=== PATIENT | female | born 1970 | race Caucasian/White ===

== ENCOUNTER 2024-12-27 21:00 | Day surgery (SDC) | payer OTHER, SELFPAY ==
[2024-12-27 15:53] VITALS: BP 138/94
--- NOTE | 2024-12-27 17:10 | ED.GENMED ---
History of Present Illness
General
Chief Complaint: Foreign Body Ingestion
Time Seen by Provider: 12/27/24 16:55
History of Present Illness
History of Present Illness:
54-year-old female presents to the emergency department for evaluation of a sensation of a foreign body in the esophagus. She states she swallowed half a clove of garlic but since that time has been coughing and gagging and unable to swallow her
own secretions. No history of esophageal strictures or obstructions.
Past History
Past History
ED Past Medical History: Other (HIV positive undetectable for past 20 years)
ED Past Surgical History: None
Social History
Tobacco: Non-smoker
Alcohol: None
Personal:
Living: with family
Employment: Employed (Property management)
Review of Systems
Review of Systems
Allergies reviewed?: Yes
All Other Systems: ROS reviewed and negative except as documented in HPI and ROS
Phy Exam
Physical Exam
Physical Exam:
GEN: Well appearing, NAD, WDWN
HEENT: Oral mucosa moist, no scleral icterus, no oropharyngeal obstructions
Cardiac: Regular rate
Lung: No respiratory distress, no tachypnea
MSK: No gross deformity or injuries
Skin: Good color, no pallor or jaundice, no rashes
Neuro: AO x3, moves all extremities freely
Psych: Calm, cooperative
Course
Orders/Labs/Results
Orders:
Orders
12/27/24 17:07
Glucagon [GlucaGen] 1 mg IV NOW STA
12/27/24 17:20
Glucagon [GlucaGen] 1 mg IV NOW ONE
12/27/24 19:16
Propofol [Diprivan] 20 ml .ROUTE .STK-MED
12/27/24 19:18
Lidocaine HCl/Pf [Xylocaine-Mpf 1% Vial] 50 mg .ROUTE .STK-MED ONE
Rocuronium [place] [Rocuronium] 50 mg .ROUTE .STK-MED ONE
Sugammadex Sodium [Bridion] 200 mg .ROUTE .STK-MED ONE
12/27/24 19:19
Fentanyl Citrate/Pf [Sublimaze] 100 mcg .ROUTE .STK-MED ONE
Midazolam HCl [Versed] 2 mg .ROUTE .STK-MED ONE
Ondansetron Injectable [Zofran] 4 mg .ROUTE .STK-MED ONE
Vital Signs
Initial and Last Documented VS:
Initial Vital Signs
Temp Pulse Resp BP Pulse Ox
97 F 92 16 138/94 100
12/27/24 15:53 12/27/24 15:53 12/27/24 15:53 12/27/24 15:53 12/27/24 15:53
Last Documented Vital Signs
Temp Pulse Resp BP Pulse Ox
97.4 F 78 12 121/59 99
12/27/24 20:15 12/27/24 21:05 12/27/24 21:05 12/27/24 21:05 12/27/24 21:05
MDM/Problems Addressed
MDM/Problems Addressed:
Glucagon was unsuccessful in resolving the esophageal food impaction thus the patient will be taken to the GI lab by Neurology for intervention
*Critical Care Note
Total Time (30-74mins, 75-104mins- exclusive of procedures): Not Applicable
ED Attending Note
-
Portions of this chart may have been created with voice recognition software.� Occasional wrong word or��sound alike� substitutions may have occurred due to the inherent limitations of voice recognition software.
Discharge Plan
Departure
Patient Disposition: GI LAB
Date of Disposition: 12/27/24
Time of Disposition: 18:08
Presentation/result/management discussed w/ accepting MD/DO: Gastroenterology
Discharge Problem:
Esophageal obstruction due to food impaction
Prescriptions:
No Action
melatonin 5 MG tablet
5 mg PO HS Qty: 14 0RF
Rx Instructions:
Take 5 mg daily at bedtime for 14 days
valsartan 40 mg Tablet
40 mg PO DAILY
Referrals:
UNKNOWN - PT DOES,NOT KNOW [Family Provider] -
Interventions
Interventions:
*Risk Screen - Suicide Last Done: 12/27/24 15:55
*General Assessment Last Done: 12/27/24 19:15
*Neglect/Abuse Screening Last Done: 12/27/24 15:55
*ED- Fall Risk Assessment Last Done: 12/27/24 18:42
*ED COVID-19 Vaccine History Last Done: 12/27/24 18:42
*Nursing Disposition Last Done: 12/27/24 19:40
GK-Zkyatx-Xlhnbmcoxh Assessment Last Done: 12/27/24 17:51
ED- Pulmonary Assessment Last Done: 12/27/24 17:51
ED-EENT Assessment Last Done: 12/27/24 17:52
Discharge Date and Time
Discharge Date/Time: 12/27/24 19:42
Print Language: KYRGYZ
[2024-12-27] MEDS: GlucaGen 1 MG IV ×2 (17:14→17:37)
--- NOTE | 2024-12-27 18:19 | CON.GI ---
Consultation
-
Date/Time Consultation Requested: 12/27/241744
Date/Time Consultation Performed: 12/27/24, 1819
Requesting Provider: Dr. Ata Larios
Performing Provider: Dr. Kamar Shaffer
Reason for Consultation: Food bolus
Medical History
Chief Complaint / HPI
Chief Complaint: Food bolus
History of Present Illness:
Ms. Shaw is a 54-year-old female with a past medical history of HIV presented to the ED with a sensation of a foreign body in the esophagus.
She reports URI symptoms and decided to take half a clove garlic to help with relief. Unfortunately, she felt this gets lodged in her upper esophagus and has been unable to tolerate her secretions since that time which was approximately 3 hours
ago. She has been coughing, gagging, along with inability to tolerate any liquids. She denies any prior history of similar symptoms in the past. There is no personal history of prior EoE or known esophageal strictures. She has had an EGD in the
past several years ago (no records of this) and reportedly normal. She is not on any other medications or blood thinners.
Currently, she is still having difficulty managing secretions despite two doses of glucagon. Her vitals are otherwise normal.
Past Medical History
Past Medical History: Other (HIV)
Past Surgical History: None
Social History
Tobacco: Non-Smoker
Alcohol: None
Drug: None
Personal:
Family History
Family History: Reviewed & Not Pertinent
Allergies / Home Medications
Allergy/AdvReac Type Severity Reaction Status Date / Time
environmental Allergy Unknown Uncoded 01/16/23 12:00
�Medication �Instructions �Recorded
melatonin 5 mg tablet 5 mg PO HS #14 tabs 05/05/21
valsartan 40 mg tablet 40 mg PO DAILY 12/27/24
Review of Systems
-
All other systems: A 12 pt ROS was Negative except as stated above in HPI
Vital Signs
Temp Pulse Resp BP Pulse Ox
97 F 92 16 138/94 100
12/27/24 15:53 12/27/24 15:53 12/27/24 15:53 12/27/24 15:53 12/27/24 15:53
Physical Exam
Exam
General: Other (Uncomfortable appearing, spitting up in bag, otherwise no acute distress)
HEENT: Anicteric, Moist Mucous Membranes and Other (Inability to manage secretions)
Respiratory: Other (Normal WOB on room air)
GI: Soft, Non Tender and Non Distended
Skin: Warm and Dry
Neuro: AO x 3
Psych: Calm
Results
Diagnostic Image Results: None available for review
Assessment / Plan
-
#Food Impaction
Ms. Shaw is a 54-year-old female with a past medical history of HIV presented to the ED with a sensation of a foreign body in the esophagus consistent with a food impaction after swallowing a half a glove of garlic and ongoing inability to
tolerate secretions along with inability to tolerate p.o. liquids despite two doses of glucagon. She would benefit from an EGD for further evaluation and management.
Recommendations:
- Keep NPO
- Plan for EGD today, 12/27/24, for foreign body removal given suspected food impaction
- Discussed risks/benefits, patient amenable to proceeding with EGD. She will be intubated for airway protection
- See EGD report for additional recommendations
Discussed with ED.
Data Reviewed
-
Old Records: Reviewed
-
-
Thank you for consultation and allowing me to participate in the patient's care. Please call the chaperone GI physician during the after hours with any questions or concerns.
[2024-12-27 20:15] VITALS: BP 111/68; BP 138/94
[2024-12-27 20:30] VITALS: BP 107/64
[2024-12-27 20:45] VITALS: BP 108/62; BP 121/69
[2024-12-27 20:56] VITALS: BP 119/68
[2024-12-27 21:05] VITALS: BP 121/59
== END 2024-12-27 22:00 | disposition home or self-care (01) ==
LOC: GI 21:00
PROVIDERS: ATTENDING PHYSICIAN Student in an Organized Health Care Education/Training Program; EMERGENCY PHYSICIAN Emergency Medicine
DX: T18.128A Food in esophagus causing other injury, initial encounter (principal); W44.F3XA Food entering into or through a natural orifice, initial encounter; Z21 Asymptomatic human immunodeficiency virus [HIV] infection status
CPT/HCPCS: 43247; 99284; 96374; J1610

== ENCOUNTER → 2025-04-12 14:17 | Outpatient (REF) | payer SELFPAY | LOC: HWRAD 14:17 | PROVIDERS: ATTENDING PHYSICIAN Internal Medicine | DX: E78.5 Hyperlipidemia, unspecified (principal) | CPT/HCPCS: 75571 ==